=== PATIENT | male | born 1995 | race Hispanic/Latino ===

== ENCOUNTER 2016-12-08 08:15 | Day surgery (SDC) | payer MEDICAID ==
[~2016-12-08] VITALS: Ht 177.8 cm; Wt 102.8 kg
[2016-12-08] VITALS (9 sets, daily range): BP systolic 124–149; BP diastolic 46–71; PULSE 68–96; RESP 15–20; O2SAT 95–100
[~2016-12-08 08:15] MED LIST: CeFAZolin 2 Gm/50 mL D5W IV Premix IV ONE; HYDR-4003 PO; Lactated Ringer's 1,000 ML IV ONE; Lactated Ringer's 1,000 ML IV SCH; NPR500T PO
[2016-12-08] MEDS ORDERED: Phenylephrine 10,000 mCg/mL Inj ONE (08:16)
[2016-12-08] MEDS ORDERED: Ondansetron 2 mg/mL 2 mL Inj ONE (08:16)
[2016-12-08] MEDS ORDERED: Neostigmine 1 mg/mL 10 mL Inj ONE (08:16)
[2016-12-08] MEDS ORDERED: Rocuronium 10 mg/mL 5 mL Inj ONE (08:16)
[2016-12-08] MEDS ORDERED: fentaNYL-PF 50 mCg/mL 2 mL Inj ONE (08:16)
[2016-12-08] MEDS ORDERED: Propofol 10,000 mCg/mL 20 mL Inj ONE (08:16)
[2016-12-08] MEDS ORDERED: Glycopyrrolate 0.2 MG/ML 1mL Inj ONE (08:16)
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
[2016-12-08] MEDS ORDERED: Lactated Ringer's 1,000 ML IV SCH (10:44)
[2016-12-08] MEDS ORDERED: Lactated Ringer's 500 ML IV PRN (10:44)
[2016-12-08] MEDS ORDERED: MetoCLOpramide 5 mg/mL 2 mL Inj IVPUSH PRN (10:45)
[2016-12-08] MEDS ORDERED: Ondansetron 2 mg/mL 2 mL Inj IVPUSH PRN (10:45)
[2016-12-08] MEDS ORDERED: HYDROmorphone 1 mg/mL Inj IVPUSH PRN (10:45)
[2016-12-08] MEDS ORDERED: hydrALAZINE 20 mg/mL Inj IVPUSH PRN (10:45)
[2016-12-08] MEDS ORDERED: Phenylephrine 10,000 mCg/mL Inj IVPUSH PRN (10:45)
[2016-12-08] MEDS ORDERED: Dexamethasone 4 mg/mL Inj IVPUSH PRN (10:45)
[2016-12-08] MEDS ORDERED: fentaNYL-PF 50 mCg/mL 2 mL Inj IVPUSH PRN (10:45)
[2016-12-08] MEDS ORDERED: Labetalol 5 mg/mL 4 mL Inj IV PRN (10:45)
[2016-12-08] MEDS ORDERED: Atropine 0.4 mg/mL Inj IVPUSH PRN (10:45)
[2016-12-08] MEDS ORDERED: EPHEDrine Sulfate 50 mg/mL Inj IVPUSH PRN (10:45)
[2016-12-08] MEDS ORDERED: Ropivacaine-PF 0.5% 30 mL Inj INFILTRATE ONE (11:51)
[2016-12-08] MEDS ORDERED: Bupivacaine-MPF 0.5% W/EPI 30 mL Inj INFILTRATE ONE (13:34)
[2016-12-08] MEDS ORDERED: Lactated Ringer's 1,000 ML IV ONE (13:35)
[2016-12-08] MEDS ORDERED: oxyCODONE-Acetamin 5-325 mg Tablet PO PRN (14:25)
--- NOTE | 2016-12-08 14:46 | PCM.ANEP1 ---
Post Anesthesia PACU Phase 1 Assessment Date of Service: Dec 08, 2016 Vital Signs Vital Signs Date Time Temp Pulse Resp B/P Pulse Ox O2 Delivery O2 Flow Rate FiO2 12/08/16 14:39 96 15 130/50 96 Room Air 12/08/16 14:25 68 17 130/46 95 Room Air 12/08/16 14:20 72 17 124/52 95 Room Air 12/08/16 14:15 83 18 127/53 95 Room Air 12/08/16 14:05 87 20 142/64 100 Simple Mask 10 12/08/16 13:58 36.5 91 19 145/69 100 Simple Mask 10 12/08/16 08:36 36.3 69 16 149/71 100 Room Air Anesthetic Administered: GA Level of Alertness: Awake, talking COELLO's with Equal Strength: No Pain: No Nausea or Vomiting: No CV Function & Hydration Stable: Yes Airway Device: Oxygen Delivery: Room Air Lungs: Clear to Percussion PACU Phase 2 Assessment Complications: No Follow up Care: No Patient Instructions Provided: N/A Raghu Swan MD Dec 08, 2016 14:46
--- NOTE | 2016-12-08 15:18 | DRSVH ---
PROCEDURE: X-RAY RIGHT CLAVICLE, COMPLETE ([id number]) INDICATIONS: orif of clavicle TECHNIQUE: 2 views of the clavicle were acquired. COMPARISON: [facility], CR, XR SURG FLOURO EA 30 MIN, 12/08/2016, 13:31. [facility], CR, XR SURG FLUORO C-ARM > 1 HR, 12/08/2016, 13:28. [facility], CR, XR CLAVICLE COMP RT, 12/08/2016, 13:12. [facility], CR, XR CLAVICLE COMP RT, 12/05/2016, 11:20. [facility], CR, XR CLAVICLE COMP RT, 11/26/2016, 15:47. FINDINGS: Bones: There has been interval open reduction and internal fixation of the mid right clavicle shaft f racture. The fracture fragments are in anatomic alignment. Orthopedic hardware is intact. There is an orthopedic plate extending across the undersurface of the fracture with 3 proximal and 4 distal b y cortical screws. Soft tissues: No suspicious soft tissue calcifications. IMPRESSION: Anatomic alignment of the right clavicle fracture, status post ORIF. Dictated by: Jose F Mendiola M.D. on 12/08/2016 at 15:16 Approved by: Jose F Mendiola M.D. on 12/08/2016 at 15:17
--- NOTE | 2016-12-08 16:20 | DRSVH ---
PROCEDURE: X-RAY RIGHT CLAVICLE, COMPLETE ([id number]) INDICATIONS: RIGHT CLAVICLE SURGERY; OPERATIVE IMAGES TECHNIQUE: 2 views of the clavicle were acquired. COMPARISON: [facility], CR, XR CLAVICLE COMP RT, 12/05/2016, 11:20. FINDINGS: Bones: Improved alignment status post ORIF of mid to distal right clavicular shaft fracture. Fixatio n plate and associated screws present in expected position. Acromioclavicular joint is intact. Soft tissues: No suspicious soft tissue calcifications. IMPRESSION: Improved alignment status post ORIF of right mid to distal clavicular shaft fracture. Dictated by: Rick CORADO Interpreted: Surinder Tuttle MD on 12/08/2016 at 13:39 Approved by: Surinder Tuttle M.D. on 12/08/2016 at 16:19
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
== END 2016-12-08 23:59 | disposition home or self-care (01) ==
LOC: SAS 08:15
PROVIDERS: ATTEND Orthopaedic Surgery
PROC: 0PS904Z Reposition Right Clavicle with Internal Fixation Device, Open Approach (ICD-10-PCS; principal; 2016-12-08 11:15)
DX: S42.021A Displaced fracture of shaft of right clavicle, initial encounter for closed fracture (principal); V28.0XXA Motorcycle driver injured in noncollision transport accident in nontraffic accident, initial encounter
CPT/HCPCS: 23515; 73000; 76001; C1713; J0690; J2250; J2370; J2405; J2710; J3010; J7120